=== PATIENT | male | born 1980 | race Caucasian/White ===

== ENCOUNTER 2016-12-01 14:18 | Emergency (ER) | payer OTHER ==
--- NOTE | ~2016-12-01 | CR110 ---
[facility] A Service of [facility] RADIOLOGY TEXT RESULTS PATIENT: DAPHNE VEGA LOCATION: SED : 84 UNIT #: [id number] AGE: [address]: ANTWAN MARTIN SEX: M ORDER DR: [id number] [place] [id number] E MR#: [id number] #: [id number] NAME: DAPHNE VEGA : 1980 SEX: M STUDY DATE/TIME: 12/01/2016 15:25 UNIT: SED ROOM: STUDY DESCRIPTION: CR Finger 2 View 3rd Lt Attending Physician: Michel Deleon Ordering Physician: Michel Deleon Primary Care Physician: Giancarlo Del Castillo M.D. MEDICAL IMAGING REPORT This report is preliminary unless electronic signature is present. EXAM 2 views of the left third finger COMPARISON None INDICATION 36-year-old male with a knot at the medial distal aspect of the third finger after trauma 3 days ago. FINDINGS There is soft tissue prominence at the radial aspect of the third distal interphalangeal joint. No radiopaque foreign body or subcutaneous gas. There is a healed boxer's fracture of the fifth metacarpal. Bones are anatomically aligned. No evidence of acute fracture or osteomyelitis. IMPRESSION 1. No acute fracture, dislocation or evidence of osteomyelitis of the third finger. No radiopaque foreign body or subcutaneous gas. 2. Soft tissue prominence of the distal third finger, perhaps due to trauma or infection. Dictated by... Christ Singh M.D. THIS IS AN ELECTRONICALLY VERIFIED REPORT Christ Singh M.D. at 12/04/2016 10:46 AM Nicci TD: 12/02/2016 10:59 JOB #: [id number] [facility] A Service of [facility] RADIOLOGY TEXT RESULTS PATIENT: DAPHNE VEGA LOCATION: SED : 84 UNIT #: [id number] AGE: [address]: ANTWAN MARTIN SEX: M ORDER DR: MEDICAL IMAGING REPORT Page 1 of 1
[~2016-12-01 14:18] MED LIST: BACTRIM DS TABL1 TA1 PO; KEFLEX500 M1 PO; NO MEDICATIONS; ORUDIS75 M1 PO; PENICILLIN PO; TYLENOL #3 PO
== END 2016-12-01 16:39 | disposition home or self-care (01) ==
LOC: SED 14:18
DX: S60.032A Contusion of left middle finger without damage to nail, initial encounter (principal); L03.012 Cellulitis of left finger; X58.XXXA Exposure to other specified factors, initial encounter; Y92.009 Unspecified place in unspecified non-institutional (private) residence as the place of occurrence of the external cause; F17.210 Nicotine dependence, cigarettes, uncomplicated
CPT/HCPCS: 73140; 99283